=== PATIENT | female | born 2000 | race Caucasian/White ===

== ENCOUNTER → 2024-01-21 08:48 | Outpatient (CLI) | payer OTHER, SELFPAY ==
[2024-01-21 09:58] LABS: Hematocrit 36.1 % (36-46); Hemoglobin 12.6 g/dL (12.0-16.0)
[2024-01-21 11:30] LABS: GTT (PREG) 1 Hour PP 50gm Dose 126 mg/dL (76-139)
== END ==
PROVIDERS: PCP Student in an Organized Health Care Education/Training Program; Referring Provider Family Medicine; Visit Provider Family Medicine
DX: Z34.80 Encounter for supervision of other normal pregnancy, unspecified trimester (principal)
CPT/HCPCS: 36415; 82950; 85014; 85018

== ENCOUNTER → 2024-02-06 11:49 | Outpatient (CLI) | payer OTHER, SELFPAY ==
--- NOTE | 2024-02-06 11:49 | DI.US.S_ITS ---
PROCEDURE: US OB LIMITED INDICATIONS: Limited growth eval placental cord OUTSIDE/PRIOR DATING DATA: Last menstrual period (LMP): 07/20/2023. LMP-based estimated date of delivery (YANCY): 04/25/2024. First dating scan (date and location): 09/12/2023. Estimated date of delivery (YANCY) from first dating scan: 04/23/2024. The calculations are made using the working YANCY of 04/25/2024. TECHNIQUE: Real-time scanning was performed of the fetus, with image documentation and biometric measurements. Endovaginal scanning: No COMPARISON: None. FINDINGS: General: A single living intrauterine gestation is present. Presentation: Breech. Placenta: Placental position is right , without previa. Amniotic fluid index: 17.3 cm, normal range is 5-24 cm. Single deepest vertical pocket is 5.4 cm. heart rate: 145 beats per minute. Maternal cervical canal: 3.4 cm long. Normal lower limit is 2.5 cm. biometrics: Biparietal diameter: 7.5 cm, 30 week 1 day Head circumference: 27.8 cm, 30 week 3 day Abdominal circumference: 24.4 cm, 28 week 5 day Femur length: 5.4 cm, 28 week 3 day Clinically estimated gestational age: 28 week 5 day Composite gestational age from present scan: 29 week 3 day Estimated weight and percentile: 1292 g, 41 percentile Other: Not applicable. IMPRESSION: Single live intrauterine consistent with 29 week 3 day gestation by current ultrasound. Placenta on the right with cord insertion 1.9 cm from superior edge, previously 1.5 cm Approved by: Brian Otero M.D. on 02/06/2024 at 21:46
== END ==
PROVIDERS: PCP Student in an Organized Health Care Education/Training Program; Referring Provider Family Medicine; Visit Provider Family Medicine
DX: O43.193 Other malformation of placenta, third trimester (principal); Z3A.29 29 weeks gestation of pregnancy
CPT/HCPCS: 76815

== ENCOUNTER → 2024-03-30 10:05 | Outpatient (CLI) | payer OTHER, SELFPAY ==
[2024-04-01 13:48] LABS: Strep Grp B PCR NEG for Grp B Strep
== END ==
PROVIDERS: PCP Student in an Organized Health Care Education/Training Program; Visit Provider Family Medicine
DX: Z34.90 Encounter for supervision of normal pregnancy, unspecified, unspecified trimester (principal); Z3A.36 36 weeks gestation of pregnancy
CPT/HCPCS: 87653

== ENCOUNTER 2024-04-03 05:20 | Outpatient (CLI) | payer OTHER, SELFPAY ==
[2024-04-03 06:45] LABS: Add Manual Diff / Slide Review NO; Basophils Absolute Auto 0 /uL (0-100); Basophils Percent Auto 0.3 % (0-2); Eosinophils Absolute Auto 200 /uL (0-450); Eosinophils Percent Auto 1.7 % (2-4); Hematocrit 35.4 % (36-46); Hemoglobin 12.4 g/dL (12.0-16.0); Lymphocytes Absolute Auto 2100 /uL (1100-4500); Lymphocytes Percent Auto 22.5 % (25-40); Mean Corpuscular Hemoglobin 31.7 PG (26-34); Mean Corpuscular Volume 90.4 fL (80-100); Monocytes Absolute Auto 900 /uL (0-900); Monocytes Percent Auto 9.4 % (3-14); Neutrophils Absolute Auto 6200 /uL (1500-7000); Neutrophils Percent Auto 66.1 % (50-75); Platelet Count 173 X10^3/uL (150-400); Red Blood Cell Count 3.92 X10^6/uL (4.0-5.2); Red Cell Distribution Width 13.3 % (11.6-14.8); White Blood Cell Count 9.4 X10^3/uL (4.5-11.0)
[2024-04-03] MEDS: ACETAMINOPHEN 325 MG TABLET 650 MG PO (06:45)
[2024-04-03 06:51] LABS: Alanine Aminotransferase 12 IU/L (<35); Albumin 3.4 g/dL (3.5-5.0); Albumin Globulin Ratio 1.2 (1.0-2.8); Alkaline Phosphatase 134 U/L (38-126); Aspartate Aminotransferase 18 IU/L (14-36); BUN Creatinine Ratio 15.2 (6-22); Bilirubin Total 0.8 mg/dL (0.2-1.3); Blood Urea Nitrogen 7 mg/dL (7-17); Calcium 8.8 mg/dL (8.4-10.2); Carbon Dioxide 20 mmol/L (22-32); Chloride 106 mmol/L (98-107); Estimated Glomerular Filt Rate > 60 mL/min (>60); Globulin 2.8 g/dL (1.7-4.1); Glucose 81 mg/dL (70-100); HEMOLYSIS < 15 (0-50); Potassium 3.7 mmol/L (3.4-5.1); Sodium 133 mmol/L (137-145); Total Protein 6.2 g/dL (6.3-8.2)
[2024-04-03 06:59] LABS: Creatinine Urine Random 57.36 mg/dL; Protein (Total) Urine Random 8 mg/dL (0-12); Protein Creatinine Ratio Urine 0.13 GRAM/24H
== END 2024-04-03 07:15 | disposition home or self-care (01) ==
LOC: LABOR 07:09 → OB 04-04 10:25
PROVIDERS: PCP Student in an Organized Health Care Education/Training Program; Referring Provider Student in an Organized Health Care Education/Training Program; Visit Provider Student in an Organized Health Care Education/Training Program
DX: O16.3 Unspecified maternal hypertension, third trimester (principal); Z3A.36 36 weeks gestation of pregnancy
CPT/HCPCS: 59025; 80053; 82570; 84156; 85025; G0378; G0379

== ENCOUNTER 2024-04-13 17:51 | Outpatient (CLI) | payer OTHER, SELFPAY | END 2024-04-13 19:05 | disposition home or self-care (01) | LOC: LABOR 17:54 → OB 04-16 06:26 | PROVIDERS: PCP Student in an Organized Health Care Education/Training Program; Referring Provider Family Medicine; Visit Provider Family Medicine | DX: O47.1 False labor at or after 37 completed weeks of gestation (principal); Z3A.38 38 weeks gestation of pregnancy | CPT/HCPCS: 59025; G0378; G0379 ==

== ENCOUNTER 2024-04-23 23:08 | Observation (INO) | payer OTHER, SELFPAY | END 2024-04-23 23:56 | disposition home or self-care (01) | LOC: LABOR 23:10 | PROVIDERS: Admitting Provider Family Medicine; PCP Student in an Organized Health Care Education/Training Program; Referring Provider Family Medicine; Visit Provider Family Medicine | DX: O47.1 False labor at or after 37 completed weeks of gestation (principal); Z3A.39 39 weeks gestation of pregnancy | CPT/HCPCS: G0378; G0379 ==

== ENCOUNTER 2024-04-25 22:36 | Inpatient (IN) | payer OTHER, SELFPAY ==
[2024-04-26] MEDS: ONDANSETRON 4 MG ODT SL (00:05)
[2024-04-26] MEDS: MORPHINE 4 MG/ML INJ IM (00:06)
[2024-04-26 02:12] LABS: Add Manual Diff / Slide Review NO; Basophils Absolute Auto 100 /uL (0-100); Basophils Percent Auto 0.3 % (0-2); Eosinophils Absolute Auto 0 /uL (0-450); Eosinophils Percent Auto 0.1 % (2-4); Hematocrit 39.9 % (36-46); Hemoglobin 13.8 g/dL (12.0-16.0); Lymphocytes Absolute Auto 1200 /uL (1100-4500); Lymphocytes Percent Auto 6.6 % (25-40); Mean Corpuscular HGB Conc 34.6 % (30-36); Mean Corpuscular Volume 89.6 fL (80-100); Monocytes Absolute Auto 1000 /uL (0-900); Monocytes Percent Auto 5.6 % (3-14); Neutrophils Absolute Auto 15900 /uL (1500-7000); Neutrophils Percent Auto 87.4 % (50-75); Platelet Count 201 X10^3/uL (150-400); Red Blood Cell Count 4.45 X10^6/uL (4.0-5.2); Red Cell Distribution Width 13.5 % (11.6-14.8); White Blood Cell Count 18.2 X10^3/uL (4.5-11.0)
[2024-04-26 03:12] VITALS: BP 126/74
--- NOTE | 2024-04-26 03:19 | PM.PNB.1 ---
Peripheral Nerve Block Note Pre-Procedure Consent obtained from: Patient Vital signs VS: - 04/26/24 03:12 Blood Pressure 126/74
--- NOTE | 2024-04-26 03:19 | PM.AN.REGBLK ---
Regional Block Pre-procedure Procedure: Continuous Lumbar Epidural for L&D (with CSE) Attending OB provider: Aden Loomis PMH/ROS narrative: Depression PSH/Anesthesia history narrative: No surgical history ASA Class: II Labs: Hct 39.9 % (36-46) 04/26/24 02:00 Plt Count 201 X10^3/uL (150-400) 04/26/24 02:00 Medications: Current Medications Generic Name Dose Route Start Last Admin Trade Name Freq PRN Reason Stop Dose Admin Calcium Carbonate 1,000 mg 04/26/24 01:55 Calcium Carbonate 500 Mg Tab PO Q2HR PRN Dyspepsia Carboprost Tromethamine 250 mcg 04/26/24 01:55 Carboprost 250 Mcg/Ml Ampul IM Q90M PRN Bleeding Fentanyl 50 mcg 04/26/24 01:55 Fentanyl 100 Mcg/2 Ml Inj IV Q1H PRN Pain, Moderate (4-6) Lactated Ringer's 1,000 mls @ 100 mls/hr 04/26/24 02:00 Lactated Ringers IV 04/26/24 11:59 CONT ODESSA Oxytocin/Lactated Ringer's 30 unit in 500 mls @ 200 mls/hr 04/26/24 01:55 Oxytocin Premix IV CONT PRN Bleeding Protocol Tranexamic Acid 1,000 mg/ 100 mls @ 600 mls/hr 04/26/24 01:55 Sodium Chloride IV NOW PRN Bleeding Lidocaine HCl 20 ml 04/26/24 01:55 Lidocaine 1% 20 Ml INJ INTRA-OP PRN Post Delivery Methylergonovine Maleate 0.2 mg 04/26/24 01:55 Methylergonovine 0.2 Mg Tablet PO Q6HR PRN Heavy Bleeding Methylergonovine Maleate 0.2 mg 04/26/24 01:55 Methylergonovine 0.2 Mg/Ml Vial IM NOW PRN Bleeding Mineral Oil 30 ml 04/26/24 01:55 Mineral Oil 30 Ml Udc TOP PRN PRN Version Misoprostol 800 mcg 04/26/24 01:55 Misoprostol 200 Mcg Tablet MT NOW PRN Bleeding Misoprostol 400 mcg 04/26/24 01:55 Misoprostol 200 Mcg Tablet SL NOW PRN Bleeding Naloxone HCl 0.2 mg 04/26/24 01:55 Naloxone 0.4 Mg/Ml Vial IV Q2MIN PRN Opiate Reversal Ondansetron HCl 4 mg 04/25/24 23:50 04/26/24 00:05 Ondansetron 4 Mg Odt SL 4 mg Q4HR PRN Administration Nausea Ondansetron HCl 4 mg 04/25/24 23:50 Ondansetron 4 Mg/2 Ml Inj IV Q4HR PRN Nausea And Vomiting Ondansetron HCl 4 mg 04/26/24 01:55 Ondansetron 4 Mg/2 Ml Inj IV Q4HR PRN Nausea And Vomiting Oxytocin 10 unit 04/26/24 01:55 Oxytocin 10 Unit/Ml Vial IM NOW PRN Bleeding Allergies: Allergies Allergy/AdvReac Type Severity Reaction Status Date / Time No Known Drug Allergies Allergy Verified 04/25/24 10:08 --: CSE 1ml 0.25% marcaine via 27g pencan Procedure Insertion date: 04/26/24 Insertion time: 02:50 Prep/Local: 1% lidocaine ( chloroprep) Interspace: L4-5 Patient position: sitting Needle: 18 gauge Quinton Loss of resistance with: saline MANNY at (cm): 6 Catheter placed at SKIN (cm): 11 Catheter in SPACE (cm): 5 Insertion: Yes CSF, Yes Blood, Yes Paresthesia with insertion and Yes Paresthesia with injection Initial Medications TEST DOSE time: 02:49 TEST DOSE: 1.5% lidocaine with epinephrine 1:200k (mL): 3 BOLUS DOSE time: 02:56 BOLUS DOSE (mL): 5 BOLUS DOSE med: 0.25% bupivacaine Infusion Initial rate (mL/hr): 6 Subsequent interventions: 0600 5 cc 2% lido for back pain low anterior pain Post-procedure Anesthesia date START: 04/26/24 Anesthesia time START: 02:30 Anesthesia date END: 04/26/24 Anesthesia time END: 07:32 Post-procedure Anesthesia Assessment: Yes CV function: HR/BP stable, Yes Resp function: RR/sat/airway adequate, Yes Post-op hydration adequate, Yes Pain control adequate, Yes Nausea & vomiting absent, Yes Temperature > 36 C and Yes Mental status appropriate
--- NOTE | 2024-04-26 05:44 | P.HPOB_ITS ---
OB HPI Date/Time Date of admission: 04/25/24 Date Patient Seen: 04/26/24 Time Patient Seen: 05:15 History of Present Condition Chief complaint: L&D : 1 Estimated Gestational Age (weeks): 40w1d Narrative: Genie Yuan is a 24 year old female G1 at 40w1d by first trimester dating who presented to L&D with c/o labor evening of 04/25/24. Patient made interval change in cervical dilation from 2 to 4cm over 2h period of observation and was admitted for expectant management of term delivery. PMHx notable for maternal h/o PCOS with conceived with letrozole; course notable for documentation of marginal cord insertion at time of DI-FAS (1.5cm) resolved at time of next interval US at 30wga (now 1.9cm), prior persistent breech presentation with spontaneous restitution at 37wga without ECV, prolonged prodromal latent labor for last 2wks. Intrapartum events: Patient presented to L&D at approx 2300, Cat 1 tracing (130bpm, mod heather, +accels, rare isolated variable decel) MD provider notified of surface to air weapons officer assessment, CEFM reviewed by MD, instructions given for zofran 4mg, IM morphine 4mg for pt requested analgesia during observation for labor r/o MD provider notified at 0150 of interval warehouse checker with cervical change from 2cm --> 4cm. Orders given for admission, routine admit labs, epidural analgesia PRN 0230 CSE placed per anesthesia, persistent Cat II tracing (baseline change to 120bpm, min variability, no accels, no decels) despite routine intrauterine resuscitation; MD not notified 0501 MD notified per RN of persistent Cat 2/3 tracing, complete cervical diation/10cm with bulging bag 0515 MD presented to bedside, initial absent variability noted without accelerations, SVE 10cm/100% effaced, AROM of bag with thin meconium, station 0/-1, noted concentrated urine and perineal edema concerning for obstructed labor. Improvement from absent --> minimal HR variability with scalp stimulation. OR team activated in anticipation of emergency section. Dr. Aden Loomis (patient's primary OBGYN) called and notified of patient status and en route. Ongoing intrauterine resuscitation measures including IVF bolus, application of supplemental oxygen --> FHR change in baseline, improved variability, single acceleration without significant decelerations 2 provider decision (Dr. Hurley, Dr. Loomis) to proceed with limited trial of maternal expulsive efforts given spontaneous descent of station to +1, low threshold to convert to delivery, OR team in place and room open/available PRN. FSE applied for close monitoring in second stage but repeatedly dislodged, external heart tones audible throughout. Noted deep variable and late decelerations with maternal expulsive efforts but with rapid return to baseline. See procedural note for full detail History of Present care: good care Dating criteria: LMP confirmed by 1st trimester US Obstetrical complications: none Medical complications: none Preadmission Labs Blood type: A (+) positive -: Antibody screen: negative, Cystic fibrosis screen: unknown, GBS status: negative, HBsAG: negative, HIV: negative and RPR/VDLR: negative -: Chlamydia screen: not detected and Gonorrhea screen: not detected -: Rubella: immune and Varicella: immune HCT: 39.9 HCAB: negative PAP: Normal Integrated screen: declined Sequential screen: declined Cell-free DNA: declined 1 hr GTT: 126 Evaluation Evaluation Baseline heart rate: 130 Variability: Minimal (3-5) monitor accelerations: Absent Monitor Decelerations: Episodic and Late Contraction Frequency (minutes): 2 Uterine Contraction Intensity: Strong/Firm Category of Tracing: Non-reactive Status: Category ll Dilation (cm): 10 Effacement (%): 100 PFSH Surgical History (Updated 01/12/24 @ 10:07 by Felicity Claire RN) No pertinent past surgical history Family History (Updated 01/12/24 @ 10:13 by Felicity Calire RN) Mother Diabetes mellitus Uterine cancer Father Prediabetes Grandmother Uterine cancer Colon cancer Melanoma Grandmother Diabetes mellitus Grandfather Alcoholism Social History marital status: number of children: 1 (stepson) household members: spouse and children lives independently: Yes caregiver/support person: Yes housing: house pets and animals: Yes (2 dogs) education level: high school occupational status: employed (telephone operator receptionist) current occupational exposures/hazards: No special henny needs: No travel history: recent (domestic only) seatbelt use: always water heater temp set < 120 deg: Yes working smoke detector in home: Yes fire extinguisher in home: Yes carbon monox detector in home: Yes firearms in home: Yes firearms unloaded and locked: Yes do you feel safe at home: Yes Smoking Status: Never smoker second hand exposure: No alcohol intake: former (occasionally when not ) substance use type: does not use during the past year weight has: remained stable well-balanced diet: about half the time daily servings fruits/ve-4 (Typically 1 each) caffeine: Yes (occasional coffee (~1/week)) Type(s) of exercise: walking and yoga duration: 30-45 minutes/day Meds Home Medications and Allergies Home Medications Medication Instructions Recorded Confirmed Type vitamin-ferrous sulfate tab PO 01/12/24 04/25/24 History 27 mg iron-folic acid 0.8 mg tablet Allergies Allergy/AdvReac Type Severity Reaction Status Date / Time No Known Drug Allergies Allergy Verified 04/25/24 10:08 OB Exam Vital signs Blood Pressure: 109/55 Pulse Rate: 84 Respiratory Rate: 18 Temperature: 97.4 F Resp Effort & Inspection: normal respiratory effort and able to speak in complete sentences Cardio Rate: tachycardic Other: noted labial/perineal edema, concentrated/bloody urine in garcia concerning for obstructed labor Objective Labs 04/27/24 06:02 Labs: Laboratory Results - last 24 hr 04/26/24 02:00 WBC 18.2 H RBC 4.45 Hgb 13.8 Hct 39.9 MCV 89.6 MCH 31.0 MCHC 34.6 RDW 13.5 Plt Count 201 Neut % (Auto) 87.4 H Lymph % (Auto) 6.6 L Blaine % (Auto) 5.6 Eos % (Auto) 0.1 L Baso % (Auto) 0.3 Neut # (Auto) 64502 H Lymph # (Auto) 1200 Blaine # (Auto) 1000 H Eos # (Auto) 0 Baso # (Auto) 100 Blood Type A Positive Antibody Screen Negative Assessment and Plan Assessment and Plan Assessment and Plan narrative: 24yo G1 at 40w1d by early first trimester dating, admitted overnight for expectant management of term labor Term labor Pt admitted for expectant management See HPI for intrapartum events from time of admission to MD evaluation as above type and screen, CBC on admission PNL reviewed, GBS neg h/o maternal mood disorder high risk PPD, recommend close interval f/u Patient is consented for vaginal delivery, vaginal operative delivery, delivery as well as transfusion of blood products as medically indicated. admit for expectant management of Time-Based Coding :: [TOTAL MINUTES] spent with patient and on the chart (including review of chart, obtaining history, exam, reviewing outside data, placing orders, documenting exam and treatment plan, and counseling patient) on [DATE].
[2024-04-26 06:22] VITALS: BP 109/55; PULSE 84; RESP 18
[2024-04-26 06:24] VITALS: TEMP 36.3
--- NOTE | 2024-04-26 07:59 | PM.OBPRVD ---
Events: Meconium Stained Fluid and Other (persistent Cat 2 tracing throughout labor with periods of cat 3 (see admit documentation)) Labor & Delivery Delivery date: 04/26/24 Intrapartal Events: Intolerance Cervical ripening method: none Induction method: none Delivery augmentation: rupture of membranes Delivery monitor: external FHT and internal FHT Route of delivery: vacuum extraction Indication for instrumentation: nonreassuring FHR tracing L&D Laceration Description: Periurethral - 1st Degree and Vaginal - 2nd Degree Delivery repair: vicryl and chromic Estimated blood loss (mL): 500 Anesthesia Type: Epidural Narrative: See admission documentation. Two provider delivery secondary to non-reassuring status with low threshold to convert to section. Dr. Aden Loomis primary delivery provider, Dr. Tea Hurley (myself) as nissan sales consultant for delivery and perineal repair. Patient C/C/+2 with excellent expulsive efforts, rapid descent to +3 at which time two provider decision to offer operative delivery (vacuum) secondary to concern for diminishing reserve. Patient assented to procedure. Kiwi applied to occiput per Dr. Hurley and with next contraction pressure increased to mid-green zone. Slow steady downward traction applied in tandem with maternal expulsive efforts, perineal support applied per Dr. Loomis. Delivery of head in straight OA position and Kiwi vacuum removed. head restituted to maternal left, anterior shoulder delivered per Dr. Loomis with minimal downward traction, nuchal cord noted and reduced x1. Posterior shoulder delivered without difficulty followed by body; placed on maternal abdomen for stimulation with subsequent noted cry. Delayed cord clamping x60s after which cord was clamped x2 and cut by FOB. 3VC noted. Cord blood collected. Placenta delivered spontaneous <5min with gentle downward traction, inspected and noted to be intact and meconium stained. Fundus palpated and noted to be firm. Perineal exam revealed a 2nd degree diffuse stellate tear of the posterior vagina with avulsion of the anterior portion of the perineal body from the distal 1/3rd of the vagina without involvement of internal or external anal sphincter confirmed on KAYLAH. A sterile sponge was placed in the vagina for better visualization. Deep bilateral sulcal tears were noted, repaired in a running layered fashion with 2-0 vicryl. The distal vagina was then reapproximated to the perineal body using chromic suture in a running fashion. KAYLAH was repeated with noted adequate perineal bulk. Hemostasis noted. Bilateral periurethral first degree lacerations noted and hemostatic. All counts correct x2. Baby 1: Infant gender: Female Position: Left Occiput Anterior Placenta delivery description: Spontaneous Cord Vessel Description: 3 Vessels, Nuchal Cord and Reduced Plan for aftercare: Routine care (recommend outpatient f/u with STRAND FORMING MACHINE OPERATOR 4-6wks for interval perineal exam given complexity of repair )
[2024-04-26] MEDS: ACETAMINOPHEN 325 MG TABLET 650 MG PO ×3 (08:35→22:10)
[2024-04-26] MEDS: IBUPROFEN 600 MG TABLET PO ×3 (08:36→22:10)
[2024-04-26] MEDS: DERMOPLAST SPRAY 20% 60 ML 1 SPRAY TOP (08:38)
[2024-04-26] MEDS: WITCH HAZEL/GLYCERIN PADS 1 EACH TOP (08:38)
[2024-04-27] MEDS: ACETAMINOPHEN 325 MG TABLET 650 MG PO ×2 (05:20→11:30)
[2024-04-27] MEDS: IBUPROFEN 600 MG TABLET PO ×2 (05:20→11:28)
[2024-04-27 06:11] LABS: Hematocrit 26.8 % (36-46); Hemoglobin 9.3 g/dL (12.0-16.0)
[2024-04-27] MEDS: DOCUSATE 100 MG CAPSULE PO (08:48)
[2024-04-27] MEDS: PRENATAL VIT,CALC/IRON/FOLIC 1 TABLET 1 TAB PO (08:48)
--- NOTE | 2024-04-27 10:35 | PATH_ITS ---
[facility] Accession Number: [id number] No. of containers..01 Tissue . 01 Material submitted: . placenta - PLACENTA . 01 Diagnosis: PLACENTA: Placenta parenchyma: Leary placenta, weight 307 grams. Chorionic villous maturation appears consistent with a mature placenta. Moderate inter and intravillous fibrin is present; peripherally fibrin and calcification occupied approximately 10% of the cut surface at gross examination. No villitis identified. . Umbiliical cord: 25.1 cm in length. Marginally inserted. Three vessels identified. No funisitis identified. . Membranes: Inserted marginally. Ruptured 8.2 cm from the nearest placental disc margin. Patchy meconium staining present. Chorioamnionitis present. [facility] 05/03/2024 0750 Local . 01 Electronically signed: . Ashlee Gaspar MD, Pathologist NPI- [id number] . 01 Gross description: . Received in formalin with two identifiers and no site on jar, is an ovoid leary placenta (307 grams trimmed weight, 18.7 x 13.2 x 2.4 cm) with no accessory lobes identified. . The membranes are alicea and translucent with the amnion from the chorion and no areas of thickening or discoloration identified. They insert at the margin and have a point of rupture 8.2 cm from the nearest placental disc edge. . The cord (25.1 cm in length by 1.1 cm in diameter has a leftward coil with an index of approximately one twist per 5 cm and inserts marginally. Sectioning reveals unremarkable trivascular architecture with no knots or lesions identified. . The surface is blue-gregg with normal arborizing vasculature and the amnion completely seprated from the chorionic plate. No distinct lesions are identified. . The maternal surface is apparently complete with thin areas of discoloration located peripherally occupying approximately 10% of the maternal surface. The cut surfaces are red and spongy with alicea areas of discoloration located peripherally associated with the aforementioned maternal surface discoloration occupying approximately 10% of the cut surface. No additional lesions are identified. . Residential Insurance Inspector sections are submitted as follows: A1: Membrane roll and placental end of cord. A2: Membrane roll and end of cord. A3: Full thickness peripheral cut and maternal surface discolorations. A4-A6: Central full thickness unremarkable sections. ([id number]) /[facility] 05/01/2024 1021 Local . 01 Pathologist provided ICD-10: O43.92 . 01 CPT . 274239 Specimen Comment: A courtesy copy of this report has been sent to [facility] Pathology Performed at: [address] [address], [place], [place] [id number] MD Elton Stephen MD Phone: [phone]
--- NOTE | 2024-04-27 13:11 | P.DS_ITS ---
Discharge Providers Provider Date of admission: 04/25/24 22:36 Discharge Date: 04/27/24 Primary care physician: Marlys Spangler DO Consults: 04/26/24 01:55 Consult to Anesthesiology Urgent Comment: Consulting Provider: Anesthesiologist Reason for consultation: Epidural 04/27/24 08:07 Consult to Decoration Checker Routine Comment: Discharge provider: Aden Loomis MD Summary Hospital Course Date Patient Seen: 04/27/24 Time Patient Seen: 13:12 Diagnoses: # #second-degree vaginal laceration # mother Hospital Course: Admitted for normal labor on 04/26 at 0155. Progressed adequately with AROM for augmentation to complete dilation over the course of 5 hours. She had a category 2 tracing with extended periods of minimal variability after receiving morphine analgesia. She had a vacuum assisted vaginal delivery of a live female with second-degree deep sulcal vaginal laceration. Her course was uncomplicated. At discharge patient is ambulating well, tolerating normal diet, breast-feeding without difficulty, and pain is adequately controlled. She reports bleeding is similar to normal menses. Peripartum Data Delivery Method: Natural Vaginal (vacuum assisted) Laceration Description: Vaginal - 2nd Degree Procedures: Vaginal laceration repair complications: none 1: Gender: Female Disposition of : home Discharge Diagnosis (1) (spontaneous vaginal delivery): Status: Acute (2) Obstetrical laceration, second degree: Status: Acute (3) Mother currently breast-feeding: Status: Acute Status at Discharge Cognitive/behavioral status at discharge: oriented Functional status at discharge: independent ambulation Overall status at discharge: patient is progressing back to baseline Time Spent with Patient Time attestation: Total time spent providing and/or coordinating discharge services: 30 minutes Objective Labs 04/27/24 06:02 Labs: Laboratory Results - last 24 hr 04/27/24 06:02 Hgb 9.3 L Hct 26.8 L Exam Narrative Exam Narrative: General: Well-appearing, well-nourished, no distress HEENT: Moist mucous membranes, no pallor CV: Regular rate and rhythm, no murmur auscultated Resp: CTAB, comfortable work of breathing Abdomen: Soft, bowel sounds present, fundus firm below umbilicus with appropriate tenderness Extremities: No edema, no calf tenderness or evidence of DVT Discharge Plan Discharge Plan Patient Disposition: Home Discharge orders & Medications Prescriptions: New acetaminophen 325 mg Tablet 650 mg PO Q6HR PRN (Reason: Pain, Mild (1-3)) Qty: 120 0RF Dermoplast (with menthol) 20-0.5 % Aerosol 1 spray topical Q1HR PRN (Reason: perineal pain) Qty: 78 2RF docusate sodium 100 mg Capsule 100 mg PO DAILY Qty: 30 1RF ibuprofen 600 mg Tablet 600 mg PO Q6HR PRN (Reason: Pain, Mild (1-3)) Qty: 60 0RF [employer] Witch Sivan 12.5-50 % Pads, Medicated 1 pad topical Q30M PRN (Reason: Itching) Qty: 40 1RF Purelan Cream 1 applic topical PRN PRN (Reason: Tenderness) Qty: 7 6RF Continued vit-ferrous sulfat-FA 27 mg iron- 0.8 mg tablet PO Follow up/Referrals: Aden Loomis MD [Physician] - 06/07/24 11:30 am (Please follow up for your 6 week appointment on June 07 2024 @11:30. Please arrive at 11:15am!) Tea Hurley MD [Physician] - 06/01/24 8:00 am (Please attend follow up appointment with Dr. Hurley for perineal repair follow up on June 01 at 8 am. Please arrive 15 minutes early at 07:45 am. ) Visit Report/Discharge Packet Instructions: DI for Hemorrhage, Fitness, DI for Depression Stand Alone Forms: Discharge: Care, Patient Portal/API, Stroke Signs & Symptoms Discharge Data Primary Care Provider: Marlys Spangler Discharges patient from system. Discharge Date/Time: 04/27/24 15:27
== END 2024-04-27 15:27 | disposition home or self-care (01) | DRG 807 ==
PROVIDERS: Obstetrics & Gynecology; Admitting Provider Family Medicine; PCP Student in an Organized Health Care Education/Training Program; Referring Provider Family Medicine; Visit Provider Family Medicine
DX: O76 Abnormality in fetal heart rate and rhythm complicating labor and delivery (principal); Z37.0 Single live birth; O70.1 Second degree perineal laceration during delivery; Z3A.40 40 weeks gestation of pregnancy
CPT/HCPCS: 36415; 59050; 59400; 85014; 85018; 85025; 86850; 86900; 86901; 96372; G0379; J2270; J3010